=== PATIENT | female | born 1955 | race Caucasian/White ===

== ENCOUNTER 2023-09-04 09:22 | Day surgery (SDC) | payer MEDICARE, SELFPAY ==
[2023-08-25 11:10] VITALS: BMI 24.1
[2023-08-26 13:25] VITALS: BMI 23.1
[2023-09-04 10:50] VITALS: BP 146/91; PULSE 68; RESP 14; TEMP 36.7; O2SAT 98
[2023-09-04] MEDS: LACTATED RINGERS 1,000 ML 150 ML IV CONT (10:52)
--- NOTE | 2023-09-04 11:07 | WPDHPUPDATE1 ---
History and Physical Update Update Date/Time: 09/04/23 11:07 History and Physical has been reviewed, including an updated exam of the patient. There are NO changes in the patient's condition. Risks, benefits, and alternatives have been discussed and questions answered. Patient agrees to proceed with procedure.
--- NOTE | 2023-09-04 11:14 | WPDANESEPPF ---
Anes - Initial Pre Proc Eval Procedure: Operation Date: 09/04/23 11:30 Proposed Procedures p Esophagogastroduodenoscopy - Raymond Quevedo MD Date/Time: 09/04/23 11:14 Surgeon: Raymond Quevedo MD Pre Op Diagnosis: Gerd without Esophagitis, Nausea Patient Data Age: 67 Gender: F Height: 1.5 m Weight: 52.6 kg Last Vital Signs Temp 36.7 C 09/04/23 10:50 Pulse 68 09/04/23 10:50 Resp 14 09/04/23 10:50 BP 146/91 H 09/04/23 10:50 Pulse Ox 98 09/04/23 10:50 O2 Del Method Room Air 09/04/23 10:50 Allergies Allergy/AdvReac Type Severity Reaction Status Date / Time codeine Allergy Unknown Low BP Verified 09/04/23 10:45 morphine Allergy Unknown hallucinati Verified 09/04/23 10:45 ons Home Medications Medication Instructions Recorded Confirmed Type buspirone 10 mg tablet 15 mg PO BID 10/08/19 09/04/23 History famotidine 20 mg tablet 20 mg PO DAILY #5 tabs 10/07/22 09/04/23 Rx methylphenidate HCl 18 mg 18 mg PO QAM 07/25/23 09/04/23 History tablet,extended release 24 hr mirabegron 25 mg tablet,extended 25 mg PO DAILY 07/25/23 09/04/23 History release 24 hr (Myrbetriq) ondansetron 4 mg disintegrating 4 mg PO Q8H PRN nausea and 07/25/23 09/04/23 Rx tablet vomiting #30 tabs pantoprazole 40 mg tablet,delayed 40 mg PO QAM #30 tabs 08/19/23 09/04/23 Rx release Patient hx anesthesia problems: none Family hx anesthesia problems: none Results Review: All pre-operative results and documents have been reviewed as part of the pre-operative evaluation. [facility] Past Medical History Medical History Depression with anxiety Essential hypertension Fibromyalgia Mood disorder Mood disorder Nonalcoholic fatty liver disease Spinal stenosis Surgical History Surgical History History of cataract surgery August 2019 History of foot surgery plantar fascitis surgery Hx of cholecystectomy Family History Family History Sibling Hypertension Sibling Glaucoma Father Glaucoma Diabetes mellitus Mother , 02/2020 Hypertension Social History Social History (Updated 09/04/23 @ 11:15 by Mateo Wesley MD) Smoking status: Former smoker Smoking end date: 02/24/94 Alcohol intake: never Substance use: never Substance use type: does not use Other substance usage details: gummies Do You Feel Safe in your Home?: Yes Lack of Transportation: No Lack of Food: Never True Current Housing: I Have Housing Concerned About Future Housing: No Difficulty Paying Gas/Electric Bills: No Difficulty Paying for Meds: No Currently Unemployed: No Education: Decline to Answer Difficulty w/ Childcare or Family Care: No Living arrangements: alone Spiritual care concerns: No Anes - Eval Final PreProcedure Day of Procedure 09/04/23 11:14 Patient weight: normal Heart: regular rate and rhythm Lungs: clear to auscultation Airway: Mallampati scale class II Neurological: alert and oriented Last oral intake: >/= 8 hours ASA classification: III Emergent: no Anesthetic plan: proceed Anesthesia type and monitoring: general GIVS and standard monitoring Results Review: All pre-operative results and documents have been reviewed as part of the pre-operative evaluation. Informed Consent: The patient's anesthetic plan and its attendant risks and benefits were discussed with the patient/family/POA. Questions were solicited and answers provided to the satisfaction of the patient/family/POA.
[2023-09-04 11:38] VITALS: BP 102/76; PULSE 87; RESP 16; O2SAT 100
[2023-09-04 11:43] VITALS: BP 120/80; PULSE 71; RESP 20; O2SAT 100
[2023-09-04 11:53] VITALS: BP 111/79; PULSE 69; RESP 23; O2SAT 100
--- NOTE | 2023-09-04 12:01 | WPDANESPN ---
Anes - Prog Note Post-Op Date/Time: 09/04/23 12:01 Cardiovascular status: normal Respiratory status: normal Airway patency: baseline Mental status: baseline Post-Op hydration status: normal Vital Signs: Last Vital Signs Temp 36.7 C 09/04/23 10:50 Pulse 69 09/04/23 11:53 Resp 23 H 09/04/23 11:53 BP 111/79 09/04/23 11:53 Pulse Ox 100 09/04/23 11:53 O2 Del Method Room Air 09/04/23 11:53 Pain Score (VAS): 0/10 I/O: Intake & Output 09/03/23 09/04/23 09/04/23 23:59 07:59 15:59 Intake Total 300 Balance 300 Patient Feedback: Patient satisfied with anesthetic care.
== END 2023-09-04 12:15 | disposition home or self-care (01) ==
PROVIDERS: PCP Internal Medicine; Visit Provider Internal Medicine Gastroenterology
PROC: 0DJ08ZZ Inspection of Upper Intestinal Tract, Via Natural or Artificial Opening Endoscopic (ICD-10-PCS; CPT 43235; principal; 2023-09-04 11:30)
DX: R11.0 Nausea (principal)
CPT/HCPCS: 43239